=== PATIENT | female | born 1965 | race Caucasian/White ===

== ENCOUNTER 2016-11-21 14:50 | Inpatient (IN) | payer OTHER ==
[~2016-11-21] VITALS: Ht 154.9 cm; Wt 107.0 kg
[2016-11-21 14:51] VITALS: BP 199/119; PULSE 111; RESP 20; TEMP 99.4; O2SAT 95
--- NOTE | 2016-11-21 14:59 | PD ---
Physical Exam Date Seen by Provider: Nov 21, 2016 Time Seen by Provider: 14:56 Narrative 51 YOWF C/O ABD PAIN FOR 1 YR. SEEN AT URGENT CARE HAD CT [facility]. POS FOR DIVERTICULITIS. PAIN 11/15. VS REVIEWED WAITING FOR BED PLACEMENT Data Data Last Documented VS Vital Signs Date Time Temp Pulse Resp B/P Pulse Ox O2 Delivery O2 Flow Rate FiO2 11/21/16 14:51 99.4 111 20 199/119 95 Room Air MDM Supervised Visit with CHERRY: Joseph Kim Nov 21, 2016 14:59
[2016-11-21 15:37] VITALS: BP 215/122; PULSE 114; RESP 18; O2SAT 95
[2016-11-21] MEDS ORDERED: SODIUM CHLOR 0.9% 1000 ML INJ 1,000 ML IV SCH ×2 (15:42→18:32)
[2016-11-21] MEDS ORDERED: metroNIDAZOLE 500 MG INJ 100 ML IV ONE (15:45)
[2016-11-21] MEDS ORDERED: MORPHINE SULFATE 4 MG/ML INJ IV PUSH ONE ×2 (15:45→18:15)
[2016-11-21] MEDS ORDERED: ONDANSETRON HCL 4 MG/2 ML VIAL IVP ONE (15:45)
[2016-11-21] MEDS ORDERED: CIPROFLOXACIN 400 MG PREMIX 200 ML IV ONE (15:45)
[2016-11-21 15:47] VITALS: O2SAT 95
[2016-11-21 16:04] LABS: BLOOD, URINE MOD (NEG); COMMENT (UR) CULT NOT INDICATED; CULTURE IF INDICATED CULT NOT INDICATED; GLUCOSE,URINE NEG (NEG); KETONE, URINE NEG (NEG); NITRITE,URINE NEG (NEG); SQUAMOUS EPITHELIAL CELL URINE 1 /hpf (0-5); URINE COLOR YELLOW (YELLW/STRAW)
[2016-11-21 16:05] LABS: AUTOMATED NEUTROPHIL # 9.2 TH/MM3 (1.8-7.7); BASOPHIL # 0.1 TH/MM3 (0-0.2); BASOPHIL % 0.7 % (0.0-2.0); EOSINOPHIL # 0.2 TH/MM3 (0-0.4); EOSINOPHIL % 1.9 % (0.0-4.0); HEMATOCRIT 42.8 % (35.0-46.0); HEMO FLAGS DIFF FINAL; LYMPH % 11.3 % (9.0-44.0); LYMPHOCYTE # 1.4 TH/MM3 (1.0-4.8); MEAN CELL VOLUME 87.8 FL (80.0-100.0); MEAN CORPUSCULAR HEMOGLOBIN 29.8 PG (27.0-34.0); MEAN CORPUSCULAR HGB CONC 33.9 % (32.0-36.0); MONO % 9.2 % (0.0-8.0); NEUT % 76.9 % (16.0-70.0); PLATELET COUNT 271 TH/MM3 (150-450); RED BLOOD COUNT 4.87 MIL/MM3 (4.00-5.30); RED CELL DISTRIBUTION WIDTH 12.5 % (11.6-17.2)
[2016-11-21 16:12] LABS: APTT (PATIENT) 31.6 SEC (24.3-30.1); PROTHROMBIN TIME - PATIENT 10.8 SEC (9.8-11.6)
[2016-11-21 16:31] LABS: ALT (GPT) 27 U/L (10-53); ANION GAP 8 MEQ/L (5-15); AST (GOT) 19 U/L (15-37); BICARBONATE 29.2 MEQ/L (21.0-32.0); BLOOD UREA NITROGEN 7 MG/DL (7-18); CHLORIDE 101 MEQ/L (98-107); GLOMERULAR FILTRATION RATE 87 ML/MIN (>89); POTASSIUM 4.3 MEQ/L (3.5-5.1); SODIUM (NA) 138 MEQ/L (136-145)
--- NOTE | 2016-11-21 16:36 | PD.CONS ---
cc: Gabriele Rizvi MD HPI Service General Surgery Reason for Consult Perforated diverticulitis Primary Care Physician No Primary Care Physician History of Present Illness This is a 51 year old female who presented to the Urgent Care today in [place] with a history of 10 days of abdominal pain without associated nausea or vomiting. The patient describes the pain as a sharp pain and rates it an 8 out of 10. She has recently traveled to [place] about a week ago but denies any sick contacts. She was having normal bowel movements up until Saturday but thought she might be constipated and took a dose of Milk of Magnesia. Since this, she has had loose bowel movements. She does report low appetite. A General Surgery consultation has been requested. Review of Systems Constitutional: COMPLAINS OF: Fatigue, Fever, Chills, Change in appetite Endocrine: DENIES: Polydipsia, Polyuria, Polyphagia Eyes: DENIES: Blurred vision Respiratory: DENIES: Apneas Cardiovascular: DENIES: Chest pain Gastrointestinal: COMPLAINS OF: Abdominal pain, Diarrhea, DENIES: Nausea, Vomiting Genitourinary: DENIES: Urinary frequency Musculoskeletal: DENIES: Joint pain Integumentary: DENIES: Abnormal pigmentation Hematologic/lymphatic: DENIES: Bruising Immunologic/allergic: DENIES: Eczema Neurologic: DENIES: Abnormal gait, Headache Psychiatric: DENIES: Confusion, Mood changes, Depression Past Family Social History Past Medical History None Past Surgical History None Reported Medications None Allergies: Coded Allergies: No Known Allergies (Unverified , 12/05/16) Active Ordered Medications Current Medications Medications (Trade) Dose Ordered Sig/Louisa Route Start Time Stop Time Status Last Admin Ciprofloxacin/ Dextrose 200 ml @ 200 mls/hr ONCE ONCE IV 11/21/16 15:45 11/21/16 16:44 11/21/16 15:59 Metronidazole 100 ml @ 100 mls/hr ONCE ONCE IV 11/21/16 15:45 11/21/16 16:44 (NS 1000 ml Inj) 1,000 ml @ 1,000 mls/hr Q1H IV 11/21/16 15:42 11/21/16 16:41 11/21/16 15:59 Family History Brother with Crohn's Disease Social History + tobacco use--- 1/2 ppd ETOH use--- socially; not daily Denies illicit drug use Physical Exam Vital Signs Vital Signs Date Time Temp Pulse Resp B/P Pulse Ox O2 Delivery O2 Flow Rate FiO2 11/21/16 15:47 95 Room Air 11/21/16 15:38 18 11/21/16 15:37 114 18 215/122 95 11/21/16 14:51 99.4 111 20 199/119 95 Room Air Physical Exam GENERAL: 51 year old female resting in bed in no acute distress. SKIN: Warm and dry. HEAD: Atraumatic. Normocephalic. EYES: Pupils equal and round. No scleral icterus. No injection or drainage. ENT: No nasal bleeding or discharge. Mucous membranes pink and moist. NECK: Trachea midline. CARDIOVASCULAR: Regular rate and rhythm. RESPIRATORY: No accessory muscle use. Clear to auscultation. Breath sounds equal bilaterally. GASTROINTESTINAL: Abdomen is obese, soft, minimally tender with deep palpation in LLQ. No visible scars on abdomen. MUSCULOSKELETAL: Extremities without clubbing, cyanosis, or edema. No obvious deformities. NEUROLOGICAL: Awake and alert. No obvious cranial nerve deficits. Motor grossly within normal limits. Five out of 5 muscle strength in the arms and legs. Normal speech. PSYCHIATRIC: Appropriate mood and affect; insight and judgment normal. Laboratory Laboratory Tests Test 11/21/16 11/21/16 11/21/16 15:11 15:15 15:20 Lactic Acid Level 0.7 White Blood Count 12.0 Red Blood Count 4.87 Hemoglobin 14.5 Hematocrit 42.8 Mean Corpuscular Volume 87.8 Mean Corpuscular Hemoglobin 29.8 Mean Corpuscular Hemoglobin 33.9 Concent Red Cell Distribution Width 12.5 Platelet Count 271 Mean Platelet Volume 8.6 Neutrophils (%) (Auto) 76.9 Lymphocytes (%) (Auto) 11.3 Monocytes (%) (Auto) 9.2 Eosinophils (%) (Auto) 1.9 Basophils (%) (Auto) 0.7 Neutrophils # (Auto) 9.2 Lymphocytes # (Auto) 1.4 Monocytes # (Auto) 1.1 Eosinophils # (Auto) 0.2 Basophils # (Auto) 0.1 CBC Comment DIFF FINAL Differential Comment Prothrombin Time 10.8 Prothromb Time International 1.0 Ratio Activated Partial 31.6 Thromboplast Time Urine Color YELLOW Urine Turbidity CLEAR Urine pH 6.0 Urine Specific [place] 1.040 Urine Protein TRACE Urine Glucose (UA) NEG Urine Ketones NEG Urine Occult Blood MOD Urine Nitrite NEG Urine Bilirubin NEG Urine Urobilinogen LESS THAN 2.0 Urine Leukocyte Esterase NEG Urine RBC 8 Urine WBC LESS THAN 1 Urine Squamous Epithelial 1 Cells Microscopic Urinalysis Comment CULT NOT INDICATED Assessment and Plan Assessment and Plan 51 year old female with perforated diverticulitis -IV antibiotics -IVF -CT abd/pelvis reviewed---no drainage abscess -Will treat with antibiotics -Will follow clinically and re-scan if needed to evaluation -Labs in AM -Thank you for this consult; We will continue to follow Discussed Condition With Dr. Dmitri Chaparro Attending Statement patient seen at bedside as above will attempt non op mgnt check labs abx abdominal exams Attestation The exam, history, and the medical decision-making described in the above note were completed with the assistance of the mid-level provider. I reviewed and agree with the findings presented. I attest that I had a [id number] encounter with the patient on the same day, and personally performed and documented my assessment and findings in the medical record. Zora Castellanos Nov 21, 2016 16:35 Gabriele Rizvi MD Dec 11, 2016 22:04
[2016-11-21 16:40] LABS: ALKALINE PHOSPHATASE 99 U/L (45-117); TOTAL BILIRUBIN ADULT 0.4 MG/DL (0.2-1.0)
--- NOTE | 2016-11-21 17:27 | PD ---
HPI Chief Complaint: Abdominal Pain Time Seen by Provider: 17:22 Travel History International Travel<30 days: No Contact w/Intl Traveler<30days: No Traveled to known affect area: No History of Present Illness HPI 51-year-old female that presents to the ED for evaluation of lower abdominal pain. Patient states that she's had this for 10 days. Per patient she went to an urgent care today and she had a workup including labs and imaging and she was told that the imaging was abnormal and told to come here to get evaluated. Patient had a blood work and imaging done at or facilities in [place]. Per CT scan from the [facility] facility she was found to have a profound diverticulitis with what appears to be perforation. Labs did show leukocytosis but otherwise unremarkable. Patient was told to come here for evaluation. Per patient her pain is 8 out of 10 on her left lower quadrant. She states that she 's never had anything like this before. No surgeries to her abdomen. Takes no medications. She was found to be profoundly hypertensive on exam. No other medical issues. No chest pain or shortness of breath. No nausea or vomiting. No diarrhea or bowel movement issues. [facility] Past Medical History Medical History: Denies Significant Hx ?: Not Past Surgical History Surgical History: No Previous Surgery Social History Alcohol Use: Yes (SOCIALLY) Tobacco Use: Yes (1.5 PPD) Substance Use: No Allergies-Medications (Allergen,Severity, Reaction): Coded Allergies: No Known Allergies (Unverified , 11/21/16) Review of Systems Except as stated in HPI: all other systems reviewed are Neg Physical Exam Narrative GENERAL: SKIN: Warm and dry. HEAD: Atraumatic. Normocephalic. EYES: Pupils equal and round. No scleral icterus. No injection or drainage. ENT: No nasal bleeding or discharge. Mucous membranes pink and moist. Tongue is midline. No uvula deviation. NECK: Trachea midline. No JVD. CARDIOVASCULAR: Regular rate and rhythm. No murmurs, S3, S4. RESPIRATORY: No accessory muscle use. Clear to auscultation. Breath sounds equal bilaterally. GASTROINTESTINAL: Abdomen soft, tender to palpation in the left lower quadrant of the abdomen, nondistended. Hepatic and splenic margins not palpable. MUSCULOSKELETAL: Extremities without clubbing, cyanosis, or edema. No obvious deformities. Full range of motion of the upper and lower extremities bilaterally. Pupils pulses bilaterally. NEUROLOGICAL: Awake and alert. No obvious cranial nerve deficits. Motor grossly within normal limits. Five out of 5 muscle strength in the arms and legs. Normal speech. PSYCHIATRIC: Appropriate mood and affect; insight and judgment normal. Data Data Last Documented VS Vital Signs Date Time Temp Pulse Resp B/P Pulse Ox O2 Delivery O2 Flow Rate FiO2 11/21/16 15:47 95 Room Air 11/21/16 15:38 18 11/21/16 15:37 114 215/122 11/21/16 14:51 99.4 Orders Complete Blood Count With Diff (11/21/16 14:59) Comprehensive Metabolic Panel (11/21/16 14:59) Prothrombin Time / Inr (Pt) (11/21/16 14:59) Act Partial Throm Time (Ptt) (11/21/16 14:59) Urinalysis - C+S If Indicated (11/21/16 14:59) Iv Access Insert/Monitor (11/21/16 14:59) Ed Urine Pregnancytest Poc (11/21/16 14:59) Lactic Acid (11/21/16 15:01) Iv Access Insert/Monitor (11/21/16 15:42) Ecg Monitoring (11/21/16 15:42) Oximetry (11/21/16 15:42) Morphine Inj (Morphine Inj) (11/21/16 15:45) Ondansetron Inj (Zofran Inj) (11/21/16 15:45) Ciprofloxacin 400 Mg Premix (Cipro 400 M (11/21/16 15:45) Metronidazole 500 Mg Inj (Flagyl 500 Mg (11/21/16 15:45) Sodium Chlor 0.9% 1000 Ml Inj (Ns 1000 M (11/21/16 15:42) Sodium Chlor 0.9% 1000 Ml Inj (Ns 1000 M (11/21/16 16:45) Complete Blood Count With Diff (11/22/16 06:00) Comprehensive Metabolic Panel (11/22/16 06:00) Consult [place] Nfs (11/21/16 ) Ciprofloxacin 400 Mg Premix (Cipro 400 M (11/22/16 04:00) Metronidazole 500 Mg Inj (Flagyl 500 Mg (11/22/16 02:00) Labs Laboratory Tests Test 11/21/16 11/21/16 11/21/16 15:11 15:15 15:20 Lactic Acid Level 0.7 mmol/L White Blood Count 12.0 TH/MM3 Red Blood Count 4.87 MIL/MM3 Hemoglobin 14.5 GM/DL Hematocrit 42.8 % Mean Corpuscular Volume 87.8 FL Mean Corpuscular Hemoglobin 29.8 PG Mean Corpuscular Hemoglobin 33.9 % Concent Red Cell Distribution Width 12.5 % Platelet Count 271 TH/MM3 Mean Platelet Volume 8.6 FL Neutrophils (%) (Auto) 76.9 % Lymphocytes (%) (Auto) 11.3 % Monocytes (%) (Auto) 9.2 % Eosinophils (%) (Auto) 1.9 % Basophils (%) (Auto) 0.7 % Neutrophils # (Auto) 9.2 TH/MM3 Lymphocytes # (Auto) 1.4 TH/MM3 Monocytes # (Auto) 1.1 TH/MM3 Eosinophils # (Auto) 0.2 TH/MM3 Basophils # (Auto) 0.1 TH/MM3 CBC Comment DIFF FINAL Differential Comment Prothrombin Time 10.8 SEC Prothromb Time International 1.0 RATIO Ratio Activated Partial 31.6 SEC Thromboplast Time Sodium Level 138 MEQ/L Potassium Level 4.3 MEQ/L Chloride Level 101 MEQ/L Carbon Dioxide Level 29.2 MEQ/L Anion Gap 8 MEQ/L Blood Urea Nitrogen 7 MG/DL Creatinine 0.71 MG/DL Estimat Glomerular Filtration 87 ML/MIN Rate Random Glucose 115 MG/DL Calcium Level 9.4 MG/DL Total Bilirubin 0.4 MG/DL Aspartate Amino Transf 19 U/L (AST/SGOT) Alanine Aminotransferase 27 U/L (ALT/SGPT) Alkaline Phosphatase 99 U/L Total Protein 8.3 GM/DL Albumin 3.4 GM/DL Urine Color YELLOW Urine Turbidity CLEAR Urine pH 6.0 Urine Specific [place] 1.040 Urine Protein TRACE mg/dL Urine Glucose (UA) NEG mg/dL Urine Ketones NEG mg/dL Urine Occult Blood MOD Urine Nitrite NEG Urine Bilirubin NEG Urine Urobilinogen LESS THAN 2.0 MG/DL Urine Leukocyte Esterase NEG Urine RBC 8 /hpf Urine WBC LESS THAN 1 /hpf Urine Squamous Epithelial 1 /hpf Cells Microscopic Urinalysis Comment CULT NOT INDICATED MDM Medical Decision Making Medical Screen Exam Complete: Yes Emergency Medical Condition: Yes Medical Record Reviewed: Yes Interpretation(s) CBC & BMP Diagram 11/21/16 15:15 LFTS WNL UA negative coags WNL Differential Diagnosis Diverticulitis versus perforated bowel versus sepsis versus hypertension versus hypertensive emergency Narrative Course 51-year-old female that presents to the ED for evaluation of possible diverticulitis. Patient was properly examined and was found to have signs and symptoms consistent with diverticulitis. Patient never did have blood work and imaging showed diverticulitis with perforation. Case was discussed in my attending who recommends I speak with general surgeon. Family and patient and agree with plan. I spoke with Dr. Rizvi who came and evaluated the patient himself recommended IV antibiotics and admission to medicine because of patient' s hypertension as this will likely require medical management. Per Dr. Rizvi this does not appear to be surgical at this time but he will follow-up the patient will admitted. HEPAS was paged. Diagnosis Primary Impression: Diverticulitis of large intestine with perforation Qualified Code: K57.20 - Diverticulitis of large intestine with perforation without bleeding Additional Impression: Hypertension Qualified Code: I10 - Essential hypertension Admitting Information Admitting Physician Requests: Admit Tesfaye Headley Nov 21, 2016 17:27
[2016-11-21 17:48] VITALS: BP 182/76; PULSE 97; RESP 18; O2SAT 98
--- NOTE | 2016-11-21 17:52 | HHI.HP ---
HPI Service Family Medicine Primary Care Physician No Primary Care Physician Admission Diagnosis acute diverticulitis with perforation Diagnoses: International Travel<30 Days: No Contact w/Intl Traveler<30days: No Known Affected Area: No History of Present Illness Mrs. Chaparro is a 51yo female with no PMH presenting with lower abdominal pain for 10 days. She initially thought it was UTI. She went to an urgent care center this morning. They obtained a urine sample. There was found to be no infection. They took blood work and sent her to [facility]. Her CT scan showed diverticulitis. She describes the pain as pressure, 7/10, with no radiation, made worse by sitting up, made by being on her side. She has tried Aleve and Advil with no pain relief. No hx of constipation. She has regular bowel movements. Never been diagnosed with diverticulosis before. No pain with BMs. No bloody stools. No nausea/ vomiting. She felt she had a fever a few days ago, but did not take a temperature. No chills. (Carolee Arellano MD R1) Review of Systems Constitutional: COMPLAINS OF: Fever (a few days ago but didn't check temp), DENIES: Chills Ears, nose, mouth, throat: DENIES: Hearing loss, Throat pain Respiratory: DENIES: Cough, Wheezing Cardiovascular: DENIES: Chest pain, Dyspnea on Exertion Gastrointestinal: COMPLAINS OF: Abdominal pain, DENIES: Black stools, Bloody stools, Constipation Genitourinary: DENIES: Urinary frequency, Dysuria Integumentary: DENIES: Rash Neurologic: DENIES: Headache (Carolee Arellano MD R1) Past Family Social History Past Medical History None. Doesn't have a PCP Past Surgical History None Reported Medications None (Carolee Arellano MD R1) Allergies: Coded Allergies: No Known Allergies (Unverified , 11/21/16) Active Ordered Medications Current Medications Medications (Trade) Dose Ordered Sig/Louisa Route Start Time Stop Time Status Last Admin Ciprofloxacin/ Dextrose 200 ml @ 200 mls/hr Q12H IV 11/22/16 04:00 Metronidazole 100 ml @ 100 mls/hr Q8H IV 11/22/16 02:00 (NS 1000 ml Inj) 1,000 ml @ 125 mls/hr Q8H IV 11/21/16 16:45 11/21/16 18:02 (NS Flush) 2 ml UNSCH PRN IV FLUSH 11/21/16 18:45 (NS Flush) 2 ml BID IV FLUSH 11/21/16 21:00 (Tylenol) 650 mg Q4H PRN PO 11/21/16 18:45 (Zofran Inj) 4 mg Q6H PRN IV 11/21/16 18:45 (Heparin Inj) 5,000 units Q12H SQ 11/21/16 21:00 (Morphine Inj) 2 mg Q3H PRN IV 11/21/16 18:45 (Morphine Inj) 4 mg Q3H PRN IV 11/21/16 18:45 (Morphine Inj) 4 mg Q3H PRN IV 11/21/16 18:45 (Narcan Inj) 0.4 mg UNSCH PRN IV 11/21/16 18:45 (Prinivil) 10 mg DAILY PO 11/21/16 18:45 (Catapres) 0.1 mg Q6H PRN PO 11/21/16 18:45 11/21/16 18:59 Family History Mother- recently passed from liver failure. Thyroid problems. Father- from sepsis. DM Siblings- younger brother- Crohn's dz Social History Lives in [place] with . 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 Open to quitting Drugs- weed when she was younger (Carolee Arellano MD R1) Physical Exam Vital Signs Vital Signs Date Time Temp Pulse Resp B/P Pulse Ox O2 Delivery O2 Flow Rate FiO2 11/21/16 15:47 95 Room Air 11/21/16 15:38 18 11/21/16 15:37 114 18 215/122 95 11/21/16 14:51 99.4 111 20 199/119 95 Room Air Physical Exam GENERAL: This is a well-nourished, well-developed obese female patient sitting up in bed, in no apparent distress. SKIN: No rashes, ecchymoses or lesions. Cool and dry. HEAD: Atraumatic. Normocephalic. No temporal or scalp tenderness. EYES: Pupils equal round and reactive. Extraocular motions intact. No scleral icterus. No injection or drainage. ENT: Nose without bleeding, purulent drainage or septal hematoma. Throat without erythema, tonsillar hypertrophy or exudate. Uvula midline. Airway patent. NECK: Trachea midline. No JVD or lymphadenopathy. Supple, nontender, no meningeal signs. CARDIOVASCULAR: Regular rate and rhythm without murmurs, gallops, or rubs. RESPIRATORY: Clear to auscultation. Breath sounds equal bilaterally. No wheezes , rales, or rhonchi. GASTROINTESTINAL: Abdomen soft, tender to palpation at LLQ and RLQ, nondistended. No hepato-splenomegaly, or palpable masses. No guarding. Normoactive bowel sounds in all 4 quadrants. MUSCULOSKELETAL: Extremities without clubbing, cyanosis, or edema. No joint tenderness, effusion, or edema noted. No calf tenderness. Negative Homans sign bilaterally. NEUROLOGICAL: Awake and alert. Motor and sensory grossly within normal limits. Normal speech. Laboratory Laboratory Tests Test 11/21/16 11/21/16 11/21/16 15:11 15:15 15:20 Lactic Acid Level 0.7 White Blood Count 12.0 Red Blood Count 4.87 Hemoglobin 14.5 Hematocrit 42.8 Mean Corpuscular Volume 87.8 Mean Corpuscular Hemoglobin 29.8 Mean Corpuscular Hemoglobin 33.9 Concent Red Cell Distribution Width 12.5 Platelet Count 271 Mean Platelet Volume 8.6 Neutrophils (%) (Auto) 76.9 Lymphocytes (%) (Auto) 11.3 Monocytes (%) (Auto) 9.2 Eosinophils (%) (Auto) 1.9 Basophils (%) (Auto) 0.7 Neutrophils # (Auto) 9.2 Lymphocytes # (Auto) 1.4 Monocytes # (Auto) 1.1 Eosinophils # (Auto) 0.2 Basophils # (Auto) 0.1 CBC Comment DIFF FINAL Differential Comment Prothrombin Time 10.8 Prothromb Time International 1.0 Ratio Activated Partial 31.6 Thromboplast Time Sodium Level 138 Potassium Level 4.3 Chloride Level 101 Carbon Dioxide Level 29.2 Anion Gap 8 Blood Urea Nitrogen 7 Creatinine 0.71 Estimat Glomerular Filtration 87 Rate Random Glucose 115 Calcium Level 9.4 Total Bilirubin 0.4 Aspartate Amino Transf 19 (AST/SGOT) Alanine Aminotransferase 27 (ALT/SGPT) Alkaline Phosphatase 99 Total Protein 8.3 Albumin 3.4 Urine Color YELLOW Urine Turbidity CLEAR Urine pH 6.0 Urine Specific [place] 1.040 Urine Protein TRACE Urine Glucose (UA) NEG Urine Ketones NEG Urine Occult Blood MOD Urine Nitrite NEG Urine Bilirubin NEG Urine Urobilinogen LESS THAN 2.0 Urine Leukocyte Esterase NEG Urine RBC 8 Urine WBC LESS THAN 1 Urine Squamous Epithelial 1 Cells Microscopic Urinalysis Comment CULT NOT INDICATED (Carolee Arellano MD R1) Result Diagram: 11/21/16 1515 11/21/16 1515 Imaging IMPRESSION: Prominent sigmoid diverticulitis with likely small contained perforation. (Carolee Arellano MD R1) Assessment and Plan Assessment and Plan Mrs. Chaparro is a 51yo female with no PMH presenting to the ED with lower abdominal pain. Prominent sigmoid diverticulitis with likely small contained perforation was found on abdominal CT. We are admitting her to inpatient. Code Status Full code Discussed Condition With Dr. Reina and Dr. Sims (Carolee Arellano MD R1) Attending Attestation THIS CASE WAS DISCUSSED WITH THE RESIDENT PHYSICIANS. I HAVE REVIEWED THE RECORD AND AGREE WITH THE ABOVE NOTE AND PLAN OF CARE WAS DISCUSSED. I HAVE AUTHORIZED THE ORDER FOR ADMISSION TO AN IN-PATIENT STATUS. (Marito Sims MD) Problem List: (1) Diverticulitis of large intestine with perforation Status: Acute Plan: Pt presenting with lower abdominal pain of 10 days duration. Diverticulitis of sigmoid with small perforation found on abdominal CT. -General Surgery consults, appreciate recs * Placed on IV antibiotics: Metronidazole 500mg q8h and ciprofloxacin 400mg q12h * Will follow clinically and re-scan if needed to evaluate * AM CBC and CMP -Tylenol and Morphine PRN for pain (2) Hypertension Status: Acute Plan: Likely due to pain, stress, or mostly likely preexisting since pt has not seen a PCP in years. -Lisinopril 10mg po daily -Clonidine 0.1mg po q6h prn (3) FEN Status: Acute Plan: Fluids: IV normal saline Electrolytes: monitor and replace as needed Nutrition: NPO DVT prophylaxis: Heparin inj (Carolee Arellano MD R1) Physician Certification 2 Midnight Certification Type: Admission for Inpatient Services Order for Inpatient Services The services are ordered in accordance with Medicare regulations or non- Medicare payer requirements, as applicable. In the case of services not specified as inpatient-only, they are appropriately provided as inpatient services in accordance with the 2-midnight benchmark. Estimated LOS (days): 3 days is the estimated time the patient will need to remain in the hospital, assuming treatment plan goals are met and no additional complications. Post-Hospital Plan: Home (Carolee Arellano MD R1) Problem Qualifiers (1) Diverticulitis of large intestine with perforation: Qualified Code: K57.20 - Diverticulitis of large intestine with perforation without bleeding (2) Hypertension: Qualified Code: I10 - Essential hypertension Carolee Arellano MD R1 Nov 21, 2016 17:52 Marito Sims MD Nov 22, 2016 11:22
[2016-11-21] MEDS: SODIUM CHLOR 0.9% 1000 ML INJ 1,000 ML IV SCH (18:02)
[2016-11-21] MEDS ORDERED: MORPHINE SULFATE 4 MG/ML INJ IV PRN ×2 (18:45)
[2016-11-21] MEDS ORDERED: ACETAMINOPHEN 325 MG TAB PO PRN (18:45)
[2016-11-21] MEDS ORDERED: ONDANSETRON HCL 4 MG/2 ML VIAL IV PRN (18:45)
[2016-11-21] MEDS ORDERED: NALOXONE HCL 0.4 MG/ML AMP IV PRN (18:45)
[2016-11-21] MEDS ORDERED: SODIUM CHLORIDE 0.9% FLUSH 10 ML FLUSH IV FLUSH PRN (18:45)
[2016-11-21] MEDS: cloNIDine HCL 0.1 MG TAB PO PRN (18:59)
[2016-11-21 20:00] VITALS: BP 157/85; PULSE 85; RESP 18; TEMP 98.3; O2SAT 93
[2016-11-21] MEDS: HEPARIN SODIUM - SQ 10,000 UNITS/ML VIAL SQ SCH (20:17)
[2016-11-21] MEDS: SODIUM CHLORIDE 0.9% FLUSH 10 ML FLUSH IV FLUSH SCH (20:21)
[2016-11-21] MEDS: LISINOPRIL 10 MG TAB PO SCH (20:24)
[2016-11-22] VITALS: BP 158/85; PULSE 84; RESP 20; TEMP 98.3; O2SAT 98
[2016-11-22] MEDS: SODIUM CHLOR 0.9% 1000 ML INJ 1,000 ML IV SCH ×3 (00:45→15:41)
[2016-11-22] MEDS: metroNIDAZOLE 500 MG INJ 100 ML IV SCH ×3 (02:12→17:24)
[2016-11-22] MEDS: CIPROFLOXACIN 400 MG PREMIX 200 ML IV SCH ×2 (02:12→15:41)
[2016-11-22 06:30] LABS: BASOPHIL % 0.4 % (0.0-2.0); EOSINOPHIL # 0.3 TH/MM3 (0-0.4); EOSINOPHIL % 3.7 % (0.0-4.0); HEMATOCRIT 40.8 % (35.0-46.0); HEMO FLAGS DIFF FINAL; LYMPH % 20.1 % (9.0-44.0); LYMPHOCYTE # 1.5 TH/MM3 (1.0-4.8); MEAN CELL VOLUME 89.7 FL (80.0-100.0); MEAN CORPUSCULAR HEMOGLOBIN 29.6 PG (27.0-34.0); MONO % 8.8 % (0.0-8.0); PLATELET COUNT 230 TH/MM3 (150-450); RED BLOOD COUNT 4.55 MIL/MM3 (4.00-5.30); RED CELL DISTRIBUTION WIDTH 12.7 % (11.6-17.2); WHITE BLOOD COUNT 7.4 TH/MM3 (4.0-11.0)
[2016-11-22 06:56] LABS: ALKALINE PHOSPHATASE 77 U/L (45-117); ALT (GPT) 22 U/L (10-53); ANION GAP 6 MEQ/L (5-15); AST (GOT) 16 U/L (15-37); BICARBONATE 30.2 MEQ/L (21.0-32.0); BLOOD UREA NITROGEN 7 MG/DL (7-18); CHLORIDE 104 MEQ/L (98-107); GLOMERULAR FILTRATION RATE 115 ML/MIN (>89); POTASSIUM 3.7 MEQ/L (3.5-5.1); SODIUM (NA) 140 MEQ/L (136-145); TOTAL BILIRUBIN ADULT 0.3 MG/DL (0.2-1.0)
[2016-11-22 08:00] VITALS: BP 183/92; PULSE 88; RESP 17; TEMP 96.6; O2SAT 96
[2016-11-22] MEDS: SODIUM CHLORIDE 0.9% FLUSH 10 ML FLUSH IV FLUSH SCH ×2 (08:10→20:07)
[2016-11-22] MEDS: LISINOPRIL 10 MG TAB PO SCH (08:12)
[2016-11-22] MEDS: NICOTINE 7 MG/24 HR PATCH T-DERMAL SCH (08:12)
[2016-11-22] MEDS: HEPARIN SODIUM - SQ 10,000 UNITS/ML VIAL SQ SCH ×2 (08:13→20:06)
--- NOTE | 2016-11-22 08:13 | HHI.FPPN ---
Subjective Remarks FM Attending Note: Patient seen and examined. S: Chart and all resident physician notes reviewed. In summary this is a 51 year old female who was admitted with an admission diagnosis of Acute Diverticulitis With Perforation. This patient had noted significant lower abdominal pain over the preceding several days. She initially thought that she had a urinary tract infection and went to the urgent care center in [place]. No evidence of UTI was noted but the patient was sent to [place] [facility] for a CT scan of her abdomen. The CT scan showed prominent sigmoid diverticulitis with likely a small contained perforation. She was contacted and told to come to the emergency room where she was admitted. The patient was started on IV fluids and IV antibiotic therapy. She was seen in consultation by general surgery. This morning she notes that her abdominal pain has significantly improved. No fever or chills were noted overnight. She has no nausea but currently has no appetite but says she feels she could eat if food was presented to her. No previous similar episode was noted. Prior to this episode the patient's bowel movements have been normal. Objective Vitals Vital Signs Date Time Temp Pulse Resp B/P Pulse Ox O2 Delivery O2 Flow Rate FiO2 11/22/16 00:00 98.3 84 20 158/85 98 11/21/16 20:00 98.3 85 18 157/85 93 11/21/16 17:48 97 18 182/76 98 Room Air 11/21/16 15:47 95 Room Air 11/21/16 15:38 18 11/21/16 15:37 114 18 215/122 95 11/21/16 14:51 99.4 111 20 199/119 95 Room Air I/O 11/21/16 11/21/16 11/21/16 11/22/16 11/22/16 11/22/16 07:00 15:00 23:00 07:00 15:00 23:00 Intake Total 1216 ml Output Total 800 ml 800 ml Balance -800 ml 416 ml Intake IV Total 1216 ml Output Urine Total 800 ml 800 ml Result Diagram: 11/22/1651111/22/16511 Other Results Item Value Date Time Total Bilirubin 0.3 MG/DL 11/22/16511 Aspartate Amino Transf (AST/SGOT) 16 U/L 11/22/16511 Alanine Aminotransferase (ALT/SGPT) 22 U/L 8/17/17 0512 Alkaline Phosphatase 77 U/L 11/22/16 0512 Urine Specific [place] 1.040 H 11/21/16 1520 Urine Occult Blood MOD H 11/21/16 1520 Urine Nitrite NEG 11/21/16 1520 Urine Leukocyte Esterase NEG 11/21/16 1520 Urine RBC 8 /hpf H 11/21/16 1520 Urine WBC LESS THAN 1 /hpf 11/21/[address] of the abdomen and pelvis with contrast done November 21, 2016 shows prominent sigmoid diverticulitis with likely small contained perforation. Objective Remarks O. CONSTITUTIONAL/GEN: normally nourished, in NAD. EYES: conjunctiva normal, PERRLA, EOMI. ENT: Mouth and pharynx normal. NECK: thyroid midline, carotids symmetrical. LUNGS: clear A-P, respiratory effort is normal. CARDIOVASCULAR: RR without murmur or gallop. No significant edema. GI/ABD: soft without masses, without organomegaly. Very mild direct tenderness in the left lower quadrant to palpation but no guarding or rebound is noted. : no CVA tenderness NEURO: No focal deficits. SKIN: color normal, no rashes noted. HEME/LYMPH: no bruising, petechia or significant adenopathy MUSC: back is normal in appearance. Extremities are normal in appearance. PSYCH/MENTAL STATUS: Alert and oriented x 3. A/P Assessment and Plan Mrs. Chaparro is a 51yo female with no PMH presenting to the ED with lower abdominal pain. Prominent sigmoid diverticulitis with likely small contained perforation was found on abdominal CT. We are admitting her to inpatient. Problem List: (1) Diverticulitis of large intestine with perforation Status: Acute Plan: Pt presenting with lower abdominal pain of 10 days duration. Diverticulitis of sigmoid with small perforation found on abdominal CT. -General Surgery consults, appreciate recs * Placed on IV antibiotics: Metronidazole 500mg q8h and ciprofloxacin 400mg q12h * Will follow clinically and re-scan if needed to evaluate * AM CBC and CMP -Tylenol and Morphine PRN for pain 11/22/16 Patient appears clinically improved on conservative therapy with IV fluids and antibiotics. We'll continue current course of therapy and monitor. (2) Hypertension Status: Acute Plan: Likely due to pain, stress, or mostly likely preexisting since pt has not seen a PCP in years. -Lisinopril 10mg po daily -Clonidine 0.1mg po q6h prn (3) FEN Status: Acute Plan: Fluids: IV normal saline Electrolytes: monitor and replace as needed Nutrition: NPO DVT prophylaxis: Heparin inj Problem Qualifiers (1) Diverticulitis of large intestine with perforation: Qualified Code: K57.20 - Diverticulitis of large intestine with perforation without bleeding (2) Hypertension: Qualified Code: I10 - Essential hypertension Marito Sims MD Nov 22, 2016 08:13
--- NOTE | 2016-11-22 08:48 | HHI.FPPN ---
Subjective Remarks Patient feels much better today. She rates the pain a 2/10, compared to an 8/10 yesterday. She has minimal appetite. She had one normal bowel movement today. She has no nausea or vomiting. She is questioning if she can go home soon. ( Roman Strickland MD R3) Objective Vitals Vital Signs Date Time Temp Pulse Resp B/P Pulse Ox O2 Delivery O2 Flow Rate FiO2 11/22/16 08:00 96.6 88 17 183/92 96 11/22/16 00:00 98.3 84 20 158/85 98 11/21/16 20:00 98.3 85 18 157/85 93 11/21/16 17:48 97 18 182/76 98 Room Air 11/21/16 15:47 95 Room Air 11/21/16 15:38 18 11/21/16 15:37 114 18 215/122 95 11/21/16 14:51 99.4 111 20 199/119 95 Room Air I/O 11/21/16 11/21/16 11/21/16 11/22/16 11/22/16 11/22/16 07:00 15:00 23:00 07:00 15:00 23:00 Intake Total 1216 ml Output Total 800 ml 800 ml Balance -800 ml 416 ml Intake IV Total 1216 ml Output Urine Total 800 ml 800 ml (Roman Strickland MD R3) Result Diagram: 11/22/16 0512 11/22/16 0512 Objective Remarks GENERAL: Sitting up in bed, appears, comfortable, no distress SKIN: No rashes, ecchymoses or lesions. HEAD: Atraumatic. Normocephalic. No temporal or scalp tenderness. EYES: Pupils equal round and reactive. No scleral icterus. No injection or drainage. ENT: No nasal discharge, moist mucous membranes NECK: Trachea midline. No JVD or lymphadenopathy. Supple, nontender, no meningeal signs. CARDIOVASCULAR: Regular rate and rhythm without murmurs, gallops, or rubs. RESPIRATORY: Clear to auscultation. Breath sounds equal bilaterally. No wheezes , rales, or rhonchi. GASTROINTESTINAL: Mild tenderness to palpation in the lower quadrants, decreased bowel sounds but present MUSCULOSKELETAL: Extremities without clubbing, cyanosis, or edema. No joint tenderness, effusion, or edema noted. No calf tenderness. NEUROLOGICAL: Awake and alert. Motor and sensory grossly within normal limits. Normal speech. (Roman Strickland MD R3) A/P Assessment and Plan 51 yo female with no PMH presented to the ED on 11/21/16 with lower abdominal pain. Prominent sigmoid diverticulitis with likely small contained perforation was found on abdominal CT. Discharge Planning Plan for discharge once tolerating diet, oral fluids, and pain reasonably well controlled. (Roman Strickland MD R3) Attending Attestation Patient seen and examined. Case reviewed and discussed with the resident team. Agree with plan of care as discussed with me and documented in the resident note. (Marito Sims MD) Problem List: (1) Diverticulitis of large intestine with perforation Status: Acute Plan: Patient presented with acute lower abdominal pain for 10 days, found to have diverticulitis of the sigmoid colon with a small perforation on CT scan. - General Surgery consulted due to small perforation. Recommend medical management. - IV antibiotics: metronidazole 500 mg q8hrs and ciprofloxacin 400 mg q12hrs started on 11/21/16 - Continue for a total course of 10 to 14 days of antibiotics - Advance diet as tolerated, likely will be advanced to clear liquids today if she continues to do well - Re-scan only if failing to get better or acutely worsens. - Tylenol PRN for mild pain. Morphine for more severe pain. (2) Hypertension Status: Acute Plan: Likely due to pain, stress, or pre-existing condition. Has not seen a PCP in years. - Lisinopril 10mg po daily started in hospital. - Clonidine 0.1 mg po q6h prn (3) FEN Status: Acute Plan: Fluids: IV normal saline at 125 mls/hr Electrolytes: stable, replace as needed Nutrition: NPO, likely advance to clear liquids today DVT prophylaxis: Heparin 5000 units bid. (Roman Strickland MD R3) Problem Qualifiers (1) Diverticulitis of large intestine with perforation: Qualified Code: K57.20 - Diverticulitis of large intestine with perforation without bleeding (2) Hypertension: Qualified Code: I10 - Essential hypertension Roman Strickland MD R3 Nov 22, 2016 08:48 Marito Sims MD Nov 22, 2016 21:23
--- NOTE | 2016-11-22 10:37 | HHI.PR ---
Subjective Subjective Notes Ambulating in room Minimal pain overnight Hungry and thirsty Objective Vitals/I&O Vital Signs Date Time Temp Pulse Resp B/P Pulse Ox O2 Delivery O2 Flow Rate FiO2 11/22/16 08:00 96.6 88 17 183/92 96 11/21/16 17:48 Room Air Labs Laboratory Tests Test 11/21/16 11/21/16 11/21/16 11/22/16 15:11 15:15 15:20 05:12 Lactic Acid Level 0.7 White Blood Count 12.0 7.4 Red Blood Count 4.87 4.55 Hemoglobin 14.5 13.5 Hematocrit 42.8 40.8 Mean Corpuscular Volume 87.8 89.7 Mean Corpuscular Hemoglobin 29.8 29.6 Mean Corpuscular Hemoglobin 33.9 33.0 Concent Red Cell Distribution Width 12.5 12.7 Platelet Count 271 230 Mean Platelet Volume 8.6 8.7 Neutrophils (%) (Auto) 76.9 67.0 Lymphocytes (%) (Auto) 11.3 20.1 Monocytes (%) (Auto) 9.2 8.8 Eosinophils (%) (Auto) 1.9 3.7 Basophils (%) (Auto) 0.7 0.4 Neutrophils # (Auto) 9.2 5.0 Lymphocytes # (Auto) 1.4 1.5 Monocytes # (Auto) 1.1 0.7 Eosinophils # (Auto) 0.2 0.3 Basophils # (Auto) 0.1 0.0 CBC Comment DIFF FINAL DIFF FINAL Differential Comment Prothrombin Time 10.8 Prothromb Time International 1.0 Ratio Activated Partial 31.6 Thromboplast Time Sodium Level 138 140 Potassium Level 4.3 3.7 Chloride Level 101 104 Carbon Dioxide Level 29.2 30.2 Anion Gap 8 6 Blood Urea Nitrogen 7 7 Creatinine 0.71 0.56 Estimat Glomerular Filtration 87 115 Rate Random Glucose 115 123 Calcium Level 9.4 8.3 Total Bilirubin 0.4 0.3 Aspartate Amino Transf 19 16 (AST/SGOT) Alanine Aminotransferase 27 22 (ALT/SGPT) Alkaline Phosphatase 99 77 Total Protein 8.3 6.8 Albumin 3.4 2.8 Urine Color YELLOW Urine Turbidity CLEAR Urine pH 6.0 Urine Specific [place] 1.040 Urine Protein TRACE Urine Glucose (UA) NEG Urine Ketones NEG Urine Occult Blood MOD Urine Nitrite NEG Urine Bilirubin NEG Urine Urobilinogen LESS THAN 2.0 Urine Leukocyte Esterase NEG Urine RBC 8 Urine WBC LESS THAN 1 Urine Squamous Epithelial 1 Cells Microscopic Urinalysis Comment CULT NOT INDICATED Cardiovascular: Regular Lungs: Clear Abdomen: Other (Minimal LLQ with palpation; abdomen soft ) Extremities: No edema A/P Assessment and Plan 51 year old female with acute diverticulitis; small perforation; stable -Clear liquids -Labs stable; repeat in AM -OOB and mobilize -Continue Cipro and Flagyl IV -IVF -FM managing hypertension -Continue non operative treatment if continues to clinically improve Attending Statement patient seen at bedside pain improving no fevers discuss with patient no operative intervention at this time slowly advance diet Attestation The exam, history, and the medical decision-making described in the above note were completed with the assistance of the mid-level provider. I reviewed and agree with the findings presented. I attest that I had a [id number] encounter with the patient on the same day, and personally performed and documented my assessment and findings in the medical record. Zora Castellanos Nov 22, 2016 10:37 Gabriele Rizvi MD Nov 24, 2016 07:27
[2016-11-22 12:00] VITALS: BP 187/91; PULSE 79; RESP 17; TEMP 98.1; O2SAT 94
[2016-11-22] MEDS: MORPHINE SULFATE 4 MG/ML INJ IV PRN ×2 (15:42→20:21)
[2016-11-22] MEDS: cloNIDine HCL 0.1 MG TAB PO PRN (15:45)
[2016-11-22 16:00] VITALS: BP 189/107; PULSE 91; RESP 18; TEMP 97.2; O2SAT 96
[2016-11-22 20:00] VITALS: BP 176/88; PULSE 84; RESP 20; TEMP 97; O2SAT 95
[2016-11-22] MEDS: REMOVE OLD PATCH T-DERMAL SCH (20:09)
[2016-11-23] VITALS: BP 163/85; PULSE 82; RESP 20; TEMP 97; O2SAT 96
[2016-11-23] MEDS: CIPROFLOXACIN 400 MG PREMIX 200 ML IV SCH ×2 (01:51→16:04)
[2016-11-23] MEDS: metroNIDAZOLE 500 MG INJ 100 ML IV SCH ×3 (01:51→17:16)
[2016-11-23] MEDS: SODIUM CHLOR 0.9% 1000 ML INJ 1,000 ML IV SCH ×4 (01:52→22:13)
[2016-11-23] MEDS: MORPHINE SULFATE 4 MG/ML INJ IV PRN ×2 (05:22→14:06)
[2016-11-23 07:19] LABS: AUTOMATED NEUTROPHIL # 4.3 TH/MM3 (1.8-7.7); BASOPHIL % 0.7 % (0.0-2.0); EOSINOPHIL # 0.3 TH/MM3 (0-0.4); EOSINOPHIL % 4.6 % (0.0-4.0); HEMATOCRIT 37.1 % (35.0-46.0); HEMO FLAGS DIFF FINAL; LYMPH % 23.2 % (9.0-44.0); LYMPHOCYTE # 1.6 TH/MM3 (1.0-4.8); MEAN CELL VOLUME 88.3 FL (80.0-100.0); MEAN CORPUSCULAR HEMOGLOBIN 29.6 PG (27.0-34.0); MEAN CORPUSCULAR HGB CONC 33.6 % (32.0-36.0); MONO % 7.6 % (0.0-8.0); NEUT % 63.9 % (16.0-70.0); PLATELET COUNT 224 TH/MM3 (150-450); RED BLOOD COUNT 4.21 MIL/MM3 (4.00-5.30); RED CELL DISTRIBUTION WIDTH 12.6 % (11.6-17.2); WHITE BLOOD COUNT 6.7 TH/MM3 (4.0-11.0)
[2016-11-23 07:20] LABS: BICARBONATE 29.6 MEQ/L (21.0-32.0); POTASSIUM 3.8 MEQ/L (3.5-5.1)
[2016-11-23 08:00] VITALS: BP 187/97; PULSE 75; RESP 17; TEMP 95.7; O2SAT 97
[2016-11-23] MEDS: NICOTINE 7 MG/24 HR PATCH T-DERMAL SCH (08:22)
[2016-11-23] MEDS: HEPARIN SODIUM - SQ 10,000 UNITS/ML VIAL SQ SCH ×2 (08:22→22:13)
[2016-11-23] MEDS: SODIUM CHLORIDE 0.9% FLUSH 10 ML FLUSH IV FLUSH SCH ×2 (08:23→22:15)
[2016-11-23] MEDS ORDERED: LISINOPRIL 20 MG TAB PO SCH (09:00)
--- NOTE | 2016-11-23 10:14 | HHI.FPPN ---
Subjective Remarks Pt is doing well this morning. She states that her pain is minimal and she has an appetite. She has been ambulating the halls. No fever/chills, no nausea/ vomiting, no CP/SOB. (Carolee Arellano MD R1) Objective Vitals Vital Signs Date Time Temp Pulse Resp B/P Pulse Ox O2 Delivery O2 Flow Rate FiO2 11/23/16 08:00 95.7 75 17 187/97 97 11/23/16 00:00 97.0 82 20 163/85 96 11/22/16 20:00 97.0 84 20 176/88 95 11/22/16 16:00 97.2 91 18 189/107 96 11/22/16 12:00 98.1 79 17 187/91 94 I/O 11/22/16 11/22/16 11/22/16 11/23/16 11/23/16 11/23/16 07:00 15:00 23:00 07:00 15:00 23:00 Intake Total 1216 ml 1782 ml 900 ml 1304 ml Output Total 800 ml 500 ml Balance 416 ml 1782 ml 900 ml 804 ml Intake Oral 720 ml 300 ml 240 ml IV Total 1216 ml 1062 ml 600 ml 1064 ml Output Urine Total 800 ml 500 ml # Voids 4 2 # Bowel Movements 0 (Carolee Arellano MD R1) Result Diagram: 11/23/16 0511/23/16 0513 Objective Remarks O. CONSTITUTIONAL/GEN: normally nourished, in NAD. EYES: conjunctiva normal, PERRLA, EOMI. ENT: Mouth and pharynx normal. NECK: thyroid midline, carotids symmetrical. LUNGS: clear A-P, respiratory effort is normal. CARDIOVASCULAR: RR without murmur or gallop. No significant edema. GI/ABD: soft without masses, without organomegaly. Nontender. : no CVA tenderness NEURO: No focal deficits. SKIN: color normal, no rashes noted. HEME/LYMPH: no bruising, petechia or significant adenopathy MUSC: back is normal in appearance. Extremities are normal in appearance. PSYCH/MENTAL STATUS: Alert and oriented x 3. (Carolee Arellano MD R1) A/P Assessment and Plan 51 yo female with no PMH presented to the ED on 11/21/16 with lower abdominal pain. Prominent sigmoid diverticulitis with likely small contained perforation was found on abdominal CT. Discharge Planning Plan for discharge once tolerating diet, oral fluids, and pain reasonably well controlled. (Carolee Arellano MD R1) Attending Attestation Patient seen and examined. Case reviewed and discussed with the resident team. Agree with plan of care as discussed with me and documented in the resident note. (Marito Sims MD) Problem List: (1) Diverticulitis of large intestine with perforation Status: Acute Plan: Pt presenting with lower abdominal pain of 10 days duration. Diverticulitis of sigmoid with small perforation found on abdominal CT. She is improving. -General Surgery consults, appreciate recs * Placed on IV antibiotics: Metronidazole 500mg q8h and ciprofloxacin 400mg q12h * Will follow clinically and re-scan if needed to evaluate * AM CBC and CMP -Tylenol and Morphine PRN for pain (2) Hypertension Status: Acute Plan: Likely due to pain, stress, or mostly likely preexisting since pt has not seen a PCP in years. -Increased Lisinopril to 20mg po daily because uncontrolled. -Clonidine 0.1mg po q6h prn (3) FEN Status: Acute Plan: Fluids: IV normal saline Electrolytes: monitor and replace as needed Nutrition: NPO DVT prophylaxis: Heparin inj (Carolee Arellano MD R1) Problem Qualifiers (1) Diverticulitis of large intestine with perforation: Qualified Code: K57.20 - Diverticulitis of large intestine with perforation without bleeding (2) Hypertension: Qualified Code: I10 - Essential hypertension Carolee Arellano MD R1 Nov 23, 2016 10:14 Marito Sims MD Nov 23, 2016 11:33
[2016-11-23 12:00] VITALS: BP 169/91; PULSE 76; RESP 17; TEMP 98.6; O2SAT 96
[2016-11-23 16:00] VITALS: BP 207/115; PULSE 85; RESP 17; TEMP 96.5; O2SAT 98
--- NOTE | 2016-11-23 16:11 | HHI.PR ---
Subjective Subjective Notes Resting in bed Feeling better to day Tolerating clears Objective Vitals/I&O Vital Signs Date Time Temp Pulse Resp B/P Pulse Ox O2 Delivery O2 Flow Rate FiO2 11/23/16 12:00 98.6 76 17 169/91 96 11/21/16 17:48 Room Air Labs Laboratory Tests Test 11/23/16 05:13 White Blood Count 6.7 Red Blood Count 4.21 Hemoglobin 12.5 Hematocrit 37.1 Mean Corpuscular Volume 88.3 Mean Corpuscular Hemoglobin 29.6 Mean Corpuscular Hemoglobin 33.6 Concent Red Cell Distribution Width 12.6 Platelet Count 224 Mean Platelet Volume 8.8 Neutrophils (%) (Auto) 63.9 Lymphocytes (%) (Auto) 23.2 Monocytes (%) (Auto) 7.6 Eosinophils (%) (Auto) 4.6 Basophils (%) (Auto) 0.7 Neutrophils # (Auto) 4.3 Lymphocytes # (Auto) 1.6 Monocytes # (Auto) 0.5 Eosinophils # (Auto) 0.3 Basophils # (Auto) 0.0 CBC Comment DIFF FINAL Differential Comment Sodium Level 141 Potassium Level 3.8 Chloride Level 105 Carbon Dioxide Level 29.6 Anion Gap 6 Blood Urea Nitrogen 6 Creatinine 0.57 Estimat Glomerular Filtration 113 Rate Random Glucose 130 Calcium Level 8.4 Cardiovascular: Regular Lungs: Clear Abdomen: Non-distended, Non-tender Extremities: No edema A/P Assessment and Plan 51 year old female with acute diverticulitis; small perforation; stable -Advance to full liquids -WBC normal -OOB and mobilize -Continue Cipro and Flagyl IV---will plan to transition to PO soon -IVF -FM managing hypertension -Continue non operative treatment if continues to clinically improve Attending Statement patient seen at bedside feels better pain and labs normalizing non op management Attestation The exam, history, and the medical decision-making described in the above note were completed with the assistance of the mid-level provider. I reviewed and agree with the findings presented. I attest that I had a [id number] encounter with the patient on the same day, and personally performed and documented my assessment and findings in the medical record. Zora Castellanos Nov 23, 2016 16:11 Gabriele Rizvi MD Nov 28, 2016 05:21
[2016-11-23] MEDS: cloNIDine HCL 0.1 MG TAB PO PRN (16:23)
[2016-11-23 20:00] VITALS: BP 157/84; PULSE 72; RESP 20; TEMP 97.3; O2SAT 97
[2016-11-23] MEDS: REMOVE OLD PATCH T-DERMAL SCH (21:00)
[2016-11-24] VITALS (8 sets, daily range): BP systolic 160–198; BP diastolic 70–120; PULSE 71–96; RESP 16–20; TEMP 96–98.2; O2SAT 95–98
[2016-11-24] MEDS: metroNIDAZOLE 500 MG INJ 100 ML IV SCH ×3 (03:52→17:07)
[2016-11-24] MEDS: CIPROFLOXACIN 400 MG PREMIX 200 ML IV SCH ×2 (03:53→17:07)
[2016-11-24 07:41] LABS: AUTOMATED NEUTROPHIL # 4.8 TH/MM3 (1.8-7.7); BASOPHIL % 0.5 % (0.0-2.0); EOSINOPHIL # 0.3 TH/MM3 (0-0.4); EOSINOPHIL % 4.7 % (0.0-4.0); HEMATOCRIT 40.7 % (35.0-46.0); HEMO FLAGS DIFF FINAL; LYMPH % 21.3 % (9.0-44.0); LYMPHOCYTE # 1.6 TH/MM3 (1.0-4.8); MEAN CELL VOLUME 86.9 FL (80.0-100.0); MEAN CORPUSCULAR HEMOGLOBIN 28.9 PG (27.0-34.0); MEAN CORPUSCULAR HGB CONC 33.3 % (32.0-36.0); MONO % 7.8 % (0.0-8.0); NEUT % 65.7 % (16.0-70.0); PLATELET COUNT 255 TH/MM3 (150-450); RED BLOOD COUNT 4.68 MIL/MM3 (4.00-5.30); RED CELL DISTRIBUTION WIDTH 12.7 % (11.6-17.2); WHITE BLOOD COUNT 7.4 TH/MM3 (4.0-11.0)
--- NOTE | 2016-11-24 08:33 | HHI.FPPN ---
Subjective Remarks Patient seen and examined this morning. No acute events overnight. Pt states that she is anxious about her blood pressure. She states she is frustrated by it being so high. Otherwise, states she is doing well. Pain is decreasing. She had a soft bowel movement last night. No nausea/vomiting. No fever/chills. Has appetite today and is on full liquids. Denies any chest pain, SOB, leg pain. (Parrish Reina MD, R2) Objective Vitals Vital Signs Date Time Temp Pulse Resp B/P Pulse Ox O2 Delivery O2 Flow Rate FiO2 11/24/16 00:00 96.9 71 20 160/81 98 11/23/16 20:00 97.3 72 20 157/84 97 11/23/16 16:00 96.5 85 17 207/115 98 11/23/16 12:00 98.6 76 17 169/91 96 I/O 11/23/16 11/23/16 11/23/16 11/24/16 11/24/16 11/24/16 07:00 15:00 23:00 07:00 15:00 23:00 Intake Total 1304 ml 1779 ml 1736 ml 1110 ml Output Total 500 ml 400 ml 975 ml 0 ml Balance 804 ml 1379 ml 761 ml 1110 ml Intake Oral 240 ml 720 ml 660 ml 240 ml IV Total 1064 ml 1059 ml 1076 ml 870 ml Output Urine Total 500 ml 400 ml 975 ml 0 ml # Voids 6 # Bowel Movements 1 0 (Parrish Reina MD, R2) Result Diagram: 11/24/16 0653 11/23/16 0513 Objective Remarks CONSTITUTIONAL/GEN: normally nourished, in NAD. LUNGS: clear A-P, respiratory effort is normal. CARDIOVASCULAR: RR without murmur or gallop. GI/ABD: soft without masses, without organomegaly. Nontender. NEURO: No focal deficits. SKIN: color normal, no rashes noted. MUSC: Extremities are normal in appearance. no edema PSYCH/MENTAL STATUS: Alert and oriented x 3. (Parrish Reina MD, R2) A/P Assessment and Plan 51 yo female with no PMH presented to the ED on 11/21/16 with lower abdominal pain. Prominent sigmoid diverticulitis with likely small contained perforation was found on abdominal CT. Discharge Planning Plan for discharge once tolerating diet, oral fluids, and pain reasonably well controlled. (Parrish Reina MD, R2) Attending Attestation Patient seen and examined. Case reviewed and discussed with the resident team. Agree with plan of care as discussed with me and documented in the resident note. (Marito Sims MD) Problem List: (1) Diverticulitis of large intestine with perforation Status: Acute Plan: Pt presenting with lower abdominal pain of 10 days duration. Diverticulitis of sigmoid with small perforation found on abdominal CT. She is improving. -General Surgery consults, appreciate recs * Placed on IV antibiotics: Metronidazole 500mg q8h and ciprofloxacin 400mg q12h (11/21 - ) * Will follow clinically and re-scan if needed to evaluate; Non-operative if continues to improve * Full Liquid diet -Tylenol and Morphine PRN for pain (2) Hypertension Status: Acute Plan: Likely due to pain, stress, or mostly likely preexisting since pt has not seen a PCP in years. -Increased Lisinopril to 40mg po daily because uncontrolled. -Clonidine 0.1mg po q6h prn (3) FEN Status: Acute Plan: Fluids: IV normal saline Electrolytes: monitor and replace as needed Nutrition: FLD DVT prophylaxis: Heparin inj (Parrish Reina MD, R2) Problem Qualifiers (1) Diverticulitis of large intestine with perforation: (2) Hypertension: Parrish Reina MD, R2 Nov 24, 2016 08:32 Marito Sims MD Nov 27, 2016 09:01
[2016-11-24] MEDS: SODIUM CHLORIDE 0.9% FLUSH 10 ML FLUSH IV FLUSH SCH ×2 (08:51→20:45)
[2016-11-24] MEDS: SODIUM CHLOR 0.9% 1000 ML INJ 1,000 ML IV SCH ×2 (08:51→17:08)
[2016-11-24] MEDS: LISINOPRIL 20 MG TAB PO SCH (08:51)
[2016-11-24] MEDS: NICOTINE 7 MG/24 HR PATCH T-DERMAL SCH (08:53)
[2016-11-24] MEDS: HEPARIN SODIUM - SQ 10,000 UNITS/ML VIAL SQ SCH ×2 (08:53→20:43)
[2016-11-24] MEDS: cloNIDine HCL 0.1 MG TAB PO PRN (10:03)
[2016-11-24] MEDS: ENALAPRILAT 1.25 MG/ML VIAL IV PUSH PRN (11:58)
[2016-11-24] MEDS ORDERED: cloNIDine HCL 0.2 MG TAB PO ONE (13:55)
[2016-11-24] MEDS ORDERED: CIPR-9 PO (18:44)
[2016-11-24] MEDS ORDERED: METR500T10 PO (18:45)
--- NOTE | 2016-11-24 18:59 | HHI.PR ---
Subjective Subjective Notes Feels well, tolerating full liquids Just used a little morphine last night Objective Vitals/I&O Vital Signs Date Time Temp Pulse Resp B/P Pulse Ox O2 Delivery O2 Flow Rate FiO2 11/24/16 16:00 97.5 96 17 172/90 97 11/21/16 17:48 Room Air Labs Laboratory Tests Test 11/24/16 06:53 White Blood Count 7.4 Red Blood Count 4.68 Hemoglobin 13.5 Hematocrit 40.7 Mean Corpuscular Volume 86.9 Mean Corpuscular Hemoglobin 28.9 Mean Corpuscular Hemoglobin 33.3 Concent Red Cell Distribution Width 12.7 Platelet Count 255 Mean Platelet Volume 8.3 Neutrophils (%) (Auto) 65.7 Lymphocytes (%) (Auto) 21.3 Monocytes (%) (Auto) 7.8 Eosinophils (%) (Auto) 4.7 Basophils (%) (Auto) 0.5 Neutrophils # (Auto) 4.8 Lymphocytes # (Auto) 1.6 Monocytes # (Auto) 0.6 Eosinophils # (Auto) 0.3 Basophils # (Auto) 0.0 CBC Comment DIFF FINAL Differential Comment Abdomen: Non-distended, Non-tender A/P Problem List: (1) Diverticulitis of large intestine with perforation (2) Hypertension (3) FEN Assessment and Plan Complicated diverticulitis, resolving nonoperatively with conservative management. Advance diet in AM Likely home tomorrow Scripts in chart F/U Dr. Rizvi next week. Advised to stay home until office visit; work involves a lot of walking. Problem Qualifiers (1) Diverticulitis of large intestine with perforation: Qualified Code: K57.20 - Diverticulitis of large intestine with perforation without bleeding (2) Hypertension: Qualified Code: I10 - Essential hypertension Roman Urena MD Nov 24, 2016 18:59
[2016-11-24] MEDS: CIPROFLOXACIN 500 MG TAB PO SCH (20:42)
[2016-11-24] MEDS: REMOVE OLD PATCH T-DERMAL SCH (20:46)
[2016-11-25] MEDS: cloNIDine HCL 0.1 MG TAB PO PRN ×2 (00:07→13:09)
[2016-11-25] MEDS: metroNIDAZOLE 500 MG TAB PO SCH ×5 (00:07→23:13)
[2016-11-25 04:00] VITALS: BP 166/90; PULSE 71; RESP 18; TEMP 97.4; O2SAT 96
[2016-11-25 04:38] LABS: MEAN CELL VOLUME 86.9 FL (80.0-100.0); MEAN CORPUSCULAR HEMOGLOBIN 29.6 PG (27.0-34.0); PLATELET COUNT 256 TH/MM3 (150-450); RED BLOOD COUNT 4.72 MIL/MM3 (4.00-5.30); RED CELL DISTRIBUTION WIDTH 12.3 % (11.6-17.2); REVIEW FLAG FINAL; WHITE BLOOD COUNT 8.5 TH/MM3 (4.0-11.0)
[2016-11-25 04:48] LABS: BICARBONATE 29.4 MEQ/L (21.0-32.0); POTASSIUM 3.5 MEQ/L (3.5-5.1)
[2016-11-25] MEDS: ENALAPRILAT 1.25 MG/ML VIAL IV PUSH PRN (07:19)
[2016-11-25] MEDS: HEPARIN SODIUM - SQ 10,000 UNITS/ML VIAL SQ SCH ×2 (07:54→21:05)
[2016-11-25] MEDS: MORPHINE SULFATE 4 MG/ML INJ IV PRN ×2 (07:54→13:28)
[2016-11-25] MEDS: LISINOPRIL 20 MG TAB PO SCH (07:55)
[2016-11-25] MEDS: NICOTINE 7 MG/24 HR PATCH T-DERMAL SCH (07:55)
[2016-11-25] MEDS: CIPROFLOXACIN 500 MG TAB PO SCH ×2 (07:55→21:05)
[2016-11-25] MEDS: amLODIPine BESYLATE 5 MG TAB PO SCH (07:57)
[2016-11-25 08:00] VITALS: BP_SYST 136; BP_SYST 188; BP_DIAS 72; BP_DIAS 96; PULSE 77; PULSE 90; RESP 17; RESP 18; TEMP 97.4; TEMP 98.6; O2SAT 94; O2SAT 98
[2016-11-25 12:00] VITALS: BP 176/92; PULSE 79; RESP 17; TEMP 98; O2SAT 96
[2016-11-25] MEDS: SODIUM CHLORIDE 0.9% FLUSH 10 ML FLUSH IV FLUSH SCH ×2 (13:10→21:07)
--- NOTE | 2016-11-25 13:32 | HHI.PR ---
Subjective Subjective Notes DAILY PROGRESS NOTE FOR SURGICAL ATTENDING, DR. CANDIDA POWERS Patient would like to eat more Pain is better controlled Objective Vitals/I&O Vital Signs Date Time Temp Pulse Resp B/P (MAP) Pulse Ox O2 Delivery O2 Flow Rate FiO2 11/25/16 12:00 98.0 79 17 176/92 (120) 96 11/21/16 17:48 Room Air Labs Laboratory Tests Test 11/25/16 03:20 White Blood Count 8.5 Red Blood Count 4.72 Hemoglobin 13.9 Hematocrit 41.0 Mean Corpuscular Volume 86.9 Mean Corpuscular Hemoglobin 29.6 Mean Corpuscular Hemoglobin Concent 34.0 Red Cell Distribution Width 12.3 Platelet Count 256 Mean Platelet Volume 8.8 Blood Urea Nitrogen 7 Creatinine 0.63 Random Glucose 114 Calcium Level 9.0 Sodium Level 142 Potassium Level 3.5 Chloride Level 105 Carbon Dioxide Level 29.4 Anion Gap 8 Estimat Glomerular Filtration Rate 100 Cardiovascular: Regular Abdomen: Non-distended, BS normal A/P Problem List: (1) Diverticulitis of large intestine with perforation (2) Hypertension (3) FEN Assessment and Plan Complicated diverticulitis, resolving nonoperatively with conservative management. Advance diet in AM Likely home tomorrow Scripts in chart F/U Dr. Rizvi next week. Advised to stay home until office visit; work involves a lot of walking. Attending Statement NOTE FOR SURGICAL ATTENDING, DR. CANDIDA POWERS I attest that I had a [id number] encounter with the patient on the same day, and personally performed and documented my assessment and findings in the medical record. The following services were provided during this hospital visit: Chart data review, vital sign assessments/reviewing monitor data Review of consultations notes if present. Medication orders/review and/or management Ordering and/or reviewing lab tests Ordering and/or interpreting/reviewing x-rays and/or diagnostic studies Care of the patient and discussion of the patient with the care team Documentation time To help prompt me to consider important information that might be impacting today's encounter and assessment, information from prior notes written by myself or my colleagues may have been "brought forward/copy and pasted" into today's note. Problem Qualifiers (1) Diverticulitis of large intestine with perforation: (2) Hypertension: Candida Powers MD Nov 25, 2016 13:32
--- NOTE | 2016-11-25 14:23 | HHI.FPPN ---
Subjective Remarks Patient states that she is doing well overall this morning. She feels very anxious about her high blood pressures. She was very tearful when talking about her blood pressure. She has no abdominal pain. No fever or chills, no chest pain or shortness of breath, no nausea vomiting, she is having regular bowel movements. (Carolee Arellano MD R1) Objective Vitals Vital Signs Date Time Temp Pulse Resp B/P (MAP) Pulse Ox O2 Delivery O2 Flow Rate FiO2 11/25/16 12:00 98.0 79 17 176/92 (120) 96 11/25/16 08:00 98.6 90 17 136/72 (93) 94 11/25/16 08:00 97.4 77 18 188/96 (126) 98 11/25/16 04:00 97.4 71 18 166/90 (115) 96 11/24/16 23:41 97.9 90 20 174/92 (119) 97 11/24/16 20:00 98.2 90 18 179/93 (121) 95 11/24/16 16:00 97.5 96 17 172/90 (117) 97 I/O 11/24/16 11/24/16 11/24/16 11/25/16 11/25/16 11/25/16 07:00 15:00 23:00 07:00 15:00 23:00 Intake Total 1110 ml 240 ml 480 ml 360 ml Output Total 0 ml 800 ml 600 ml 700 ml Balance 1110 ml -560 ml -120 ml -340 ml Intake Oral 240 ml 240 ml 480 ml 360 ml IV Total 870 ml Output Urine Total 0 ml 800 ml 600 ml 700 ml # Bowel Movements 0 1 0 (Carolee Arellano MD R1) Result Diagram: 11/25/16 0320 11/25/16 0320 Objective Remarks CONSTITUTIONAL/GEN: normally nourished, in NAD. Sitting in chair. LUNGS: clear A-P, respiratory effort is normal. CARDIOVASCULAR: RR without murmur or gallop. GI/ABD: soft without masses, without organomegaly. Nontender. NEURO: No focal deficits. SKIN: color normal, no rashes noted. MUSC: Extremities are normal in appearance. no edema PSYCH/MENTAL STATUS: Alert and oriented x 3. (Carolee Arellano MD R1) A/P Assessment and Plan 51 yo female with no PMH presented to the ED on 11/21/16 with lower abdominal pain. Prominent sigmoid diverticulitis with likely small contained perforation was found on abdominal CT. Discharge Planning Plan for discharge once tolerating diet, oral fluids, and pain reasonably well controlled. (Carolee Arellano MD R1) Attending Attestation Patient seen and examined. Case reviewed and discussed with the resident team. Agree with plan of care as discussed with me and documented in the resident note. (Marito Sims MD) Problem List: (1) Diverticulitis of large intestine with perforation ICD Codes: K57.20 - Diverticulitis of large intestine with perforation and abscess without bleeding Status: Acute Plan: Pt presenting with lower abdominal pain of 10 days duration. Diverticulitis of sigmoid with small perforation found on abdominal CT. She is improving. -General Surgery consults, appreciate recs * Placed on PO antibiotics: Metronidazole 500mg q8h and ciprofloxacin 500mg q12h (on IV 11-21 through , PO 11/24 - ) * Will follow clinically and re-scan if needed to evaluate; Non-operative if continues to improve * Regular diet -Tylenol and Morphine PRN for pain (2) Hypertension ICD Codes: I10 - Essential (primary) hypertension Status: Acute Plan: Likely due to pain, stress, or mostly likely preexisting since pt has not seen a PCP in years. -Increased Lisinopril to 40mg po daily. -Added amlodipine 5mg po daily -Clonidine 0.1mg po q6h prn (3) FEN Status: Acute Plan: Fluids: IV normal saline Electrolytes: monitor and replace as needed Nutrition: FLD DVT prophylaxis: Heparin inj (Carolee Arellano MD R1) Problem Qualifiers (1) Diverticulitis of large intestine with perforation: (2) Hypertension: Carolee Arellano MD R1 Nov 25, 2016 14:23 Marito Sims MD Nov 27, 2016 08:52
[2016-11-25] MEDS: LORazepam 1 MG TAB PO PRN ×2 (15:59→23:12)
[2016-11-25 20:00] VITALS: BP 156/82; PULSE 89; RESP 20; TEMP 96.6; O2SAT 98
[2016-11-25] MEDS: REMOVE OLD PATCH T-DERMAL SCH (21:00)
[2016-11-26] VITALS: BP 164/86; PULSE 79; RESP 18; TEMP 96.7; O2SAT 97
[2016-11-26] MEDS: metroNIDAZOLE 500 MG TAB PO SCH (05:31)
[2016-11-26] MEDS: LORazepam 1 MG TAB PO PRN (05:32)
[2016-11-26 08:00] VITALS: BP 138/84; PULSE 80; RESP 20; TEMP 97.2; O2SAT 97
[2016-11-26] MEDS: NICOTINE 7 MG/24 HR PATCH T-DERMAL SCH (09:00)
[2016-11-26] MEDS: amLODIPine BESYLATE 5 MG TAB PO SCH (09:26)
[2016-11-26] MEDS: CIPROFLOXACIN 500 MG TAB PO SCH (09:26)
[2016-11-26] MEDS: LISINOPRIL 20 MG TAB PO SCH (09:26)
[2016-11-26] MEDS: HEPARIN SODIUM - SQ 10,000 UNITS/ML VIAL SQ SCH (09:30)
[2016-11-26] MEDS: SODIUM CHLORIDE 0.9% FLUSH 10 ML FLUSH IV FLUSH SCH (09:31)
[2016-11-26] MEDS ORDERED: AMLO10TA2 PO (10:20)
[2016-11-26] MEDS ORDERED: LISI-515 PO (10:20)
--- NOTE | 2016-11-26 10:23 | HHI.DCPOC ---
Discharge Care Plan Diagnosis: (1) Diverticulitis of large intestine with perforation (2) Hypertension Goals to Promote Your Health * To prevent worsening of your condition and complications * To maintain your health at the optimal level Directions to Meet Your Goals Take your medications as prescribed Follow your dietary instruction Follow activity as directed Keep your appointments as scheduled Take your immunizations and boosters as scheduled If your symptoms worsen call your PCP, if no PCP go to Urgent Care Center or Emergency Room Smoking is Dangerous to Your Health. Avoid second hand smoke Call the 24-hour hour crisis hotline for domestic abuse at Carolee Arellano MD R1 Nov 26, 2016 10:23
--- NOTE | 2016-11-26 14:11 | HHI.FPPN ---
Subjective Remarks Patient sitting up in chair. She reports completely resolved pain this morning. She is tolerating a regular diet without difficulty. No fevers or chills overnight. No nausea or vomiting. Having normal bowel movements. She is eager to leave this morning. BP improved with amlodipine, but still elevated. Amlodipine was increased from 5 mg to 10 mg this morning. Discussed discharge planning, especially the need to follow up with a primary care physician after discharge. (Roman Strickland MD R3) Objective Vitals Vital Signs Date Time Temp Pulse Resp B/P (MAP) Pulse Ox O2 Delivery O2 Flow Rate FiO2 11/26/16 08:00 97.2 80 20 138/84 (102) 97 11/26/16 00:00 96.7 79 18 164/86 (112) 97 11/25/16 20:00 96.6 89 20 156/82 (106) 98 I/O 11/25/16 11/25/16 11/25/16 11/26/16 11/26/16 11/26/16 07:00 15:00 23:00 07:00 15:00 23:00 Intake Total 360 ml 960 ml 360 ml Output Total 700 ml Balance -340 ml 960 ml 360 ml Intake Oral 360 ml 960 ml 360 ml Output Urine Total 700 ml # Voids 6 2 # Bowel Movements 0 1 (Roman Strickland MD R3) Result Diagram: 11/25/16 0320 11/25/16 0320 Objective Remarks CONSTITUTIONAL/GEN: Sitting up in chair, appears comfortable, in positive spirits LUNGS: CTAB, no respiratory distress CARDIOVASCULAR: RR without murmur or gallop. GI/ABD: soft without masses, without organomegaly. Nontender, no guarding. Normal bowel sounds. NEURO: No focal deficits. SKIN: color normal, no rashes noted. MUSC: Extremities are normal in appearance. no edema PSYCH/MENTAL STATUS: Alert and oriented x 3. (Roman Strickland MD R3) A/P Assessment and Plan 51 yo female with no PMH presented to the ED on 11/21/16 with lower abdominal pain. Prominent sigmoid diverticulitis with small contained perforation was found on abdominal CT. Managed medically without need for surgical intervention. Discharge Planning Will discharge home today as she is tolerating a regular diet with resolved pain and no nausea or vomiting. Advised follow up with a primary care physician within the week. (Roman Strickland MD R3) Attending Attestation Patient seen and examined. Case reviewed and discussed with the resident team. Agree with plan of care as discussed with me and documented in the resident note. (Marito Sims MD) Problem List: (1) Diverticulitis of large intestine with perforation ICD Codes: K57.20 - Diverticulitis of large intestine with perforation and abscess without bleeding Status: Acute Plan: Pt presenting with lower abdominal pain of 10 days duration. Diverticulitis of sigmoid with small perforation found on abdominal CT. At this point she is tolerating a regular diet and has no nausea or vomiting. General surgery recommended managing with medical/supportive care. -General Surgery consults, appreciate recs * Placed on PO antibiotics: Metronidazole 500mg q8h and ciprofloxacin 500mg (on IV 11-21 through , PO 11/24 - ). Will continue each for a course of 10 days. * No need for imaging unless symptoms acutely worsen or she starts to run fevers. * Regular diet - Needs primary care physician. Referred to primary care. Number given for our clinic at the [facility]. Recommend follow up within the week. (2) Hypertension ICD Codes: I10 - Essential (primary) hypertension Status: Acute Plan: Likely due to pain, stress, or mostly likely preexisting since pt has not seen a PCP in years. -Lisinopril to 40mg po daily. -Added amlodipine 5mg po daily, increased to 10 mg today. (3) FEN Status: Acute Plan: Fluids: PO fluids Electrolytes: monitor and replace as needed Nutrition: tolerating regular diet (Roman Strickland MD R3) Problem Qualifiers (1) Diverticulitis of large intestine with perforation: (2) Hypertension: Roman Strickland MD R3 Nov 26, 2016 14:11 Marito Sims MD Nov 27, 2016 08:56
--- NOTE | 2016-11-26 14:18 | HHI.DS ---
Discharge Summary Admission Date Nov 21, 2016 at 17:30 Discharge Date: Nov 26, 2016 Admitting Diagnosis acute diverticulitis with perforation (1) Diverticulitis of large intestine with perforation Plan: Pt presenting with lower abdominal pain of 10 days duration. Diverticulitis of sigmoid with small perforation found on abdominal CT. At this point she is tolerating a regular diet and has no nausea or vomiting. General surgery recommended managing with medical/supportive care. -General Surgery consults, appreciate recs * Placed on PO antibiotics: Metronidazole 500mg q8h and ciprofloxacin 500mg (on IV 11-21 through , PO 11/24 - ). Will continue each for a course of 10 days. * No need for imaging unless symptoms acutely worsen or she starts to run fevers. * Regular diet - Needs primary care physician. Referred to primary care. Number given for our clinic at the [facility]. Recommend follow up within the week. ICD Codes: K57.20 - Diverticulitis of large intestine with perforation and abscess without bleeding Status: Acute (2) Hypertension Plan: Likely due to pain, stress, or mostly likely preexisting since pt has not seen a PCP in years. -Lisinopril to 40mg po daily. -Added amlodipine 5mg po daily, increased to 10 mg today. ICD Codes: I10 - Essential (primary) hypertension Status: Acute (3) FEN Plan: Fluids: PO fluids Electrolytes: monitor and replace as needed Nutrition: tolerating regular diet Status: Acute Consultants General surgery Brief History Mrs. Chaparro is a 51yo female with no PMH presenting with lower abdominal pain for 10 days. She initially thought it was UTI. She went to an urgent care center this morning. They obtained a urine sample. There was found to be no infection. They took blood work and sent her to [facility]. Her CT scan showed diverticulitis. She describes the pain as pressure, 7/10, with no radiation, made worse by sitting up, made by being on her side. She has tried Aleve and Advil with no pain relief. No hx of constipation. She has regular bowel movements. Never been diagnosed with diverticulosis before. No pain with BMs. No bloody stools. No nausea/ vomiting. She felt she had a fever a few days ago, but did not take a temperature. No chills. CBC/BMP: 11/25/16 0320 11/25/16 0320 Significant Findings Laboratory Tests Test 11/24/16 06:53 11/25/16 03:20 Eosinophils (%) (Auto) 4.7 % (0.0-4.0) Random Glucose 114 MG/DL (74-106) PE at Discharge CONSTITUTIONAL/GEN: Sitting up in chair, appears comfortable, in positive spirits LUNGS: CTAB, no respiratory distress CARDIOVASCULAR: RR without murmur or gallop. GI/ABD: soft without masses, without organomegaly. Nontender, no guarding. Normal bowel sounds. NEURO: No focal deficits. SKIN: color normal, no rashes noted. MUSC: Extremities are normal in appearance. no edema PSYCH/MENTAL STATUS: Alert and oriented x 3. Hospital Course 51 year old female presented to the ED on 11/21/16 with left lower quadrant abdominal pain and was found to have prominent sigmoid diverticulitis with a small contained perforation on abdominal CT scan. General surgery was consulted and recommended medical/supportive management. She was given IV fluids and her diet was advanced gradually. By the time of discharge she is tolerating a regular diet and fluids, having normal bowel movements, and pain is resolved. She was treated with ciprofloxacin and metronidazole which will be continued for a total course of 10 days. She does not have a primary care physician and a referral was given for her to follow up with a PCP. The number to our [facility] clinic was given to her to help her with follow up. She is recommended to avoid strenuous physical activity until cleared by her PCP. She had hypertension in the hospital and was started on Lisinopril 40 mg and amlodipine 10 mg daily. She also has some elevated blood sugars and should be worked up further for diabetes. Pt Condition on Discharge: Good Discharge Disposition: Discharge Home Discharge Instructions DIET: Follow Instructions for: Heart Healthy Diet Activities you can perform: Regular-No Restrictions Other Activity Instructions: Recommend no strenuous activity due to perforation until cleared by PCP Follow up Referrals: PCP Follow-up - 1 Week Surgical - 1 Week with Gabriele Rizvi MD New Medications: Amlodipine (Amlodipine) 10 Mg Tab 10 MG PO DAILY for Blood Pressure Management, #30 TAB 0 Refills Ciprofloxacin (Cipro) 500 Mg Tab 500 MG PO BID for Infection, #20 TAB 0 Refills Metronidazole (Metronidazole) 500 Mg Tab 500 MG PO QID for Infection, #30 TAB 0 Refills Lisinopril (Lisinopril) 20 Mg Tab 40 MG PO DAILY, #30 TAB Roman Strickland MD R3 Nov 26, 2016 14:18
== END 2016-11-26 11:31 | disposition home or self-care (01) | DRG 392 ==
LOC: NEPE 14:50 → NEDA 17:30 → N07A 19:10
PROVIDERS: ADMIT Family Medicine; ATTEND Family Medicine
DX: K57.20 Diverticulitis of large intestine with perforation and abscess without bleeding (principal); I10 Essential (primary) hypertension; D72.829 Elevated white blood cell count, unspecified; F17.210 Nicotine dependence, cigarettes, uncomplicated; Z83.3 Family history of diabetes mellitus; Z83.79 Family history of other diseases of the digestive system; R73.9 Hyperglycemia, unspecified
CPT/HCPCS: 80048; 80053; 81001; 83605; 84703; 85025; 85027; 85610; 85730; 96374; 96375; J0744; J1644; J2270; J2405; J7030